=== PATIENT | male | born 1980 | race Caucasian/White ===

== ENCOUNTER → 2022-01-22 | Outpatient (CLI) | payer OTHER ==
[~2022-01-22] MED LIST: ASPIRIN 325MG325 MG PO; ASPIRIN CHEWABL81 MG PO; BENTYL 20MG TAB20 MG PO; BP MED; BUSPAR 10MG10 MG PO; COLCHICINE 0.60.6 MG PO; DEPRESSION MED; IBUPROFEN600 MG PO; MEDROL4 MG PO; NORCO 5-325 TA1 EACH PO; PROCARDIA XL 3030 MG PO; ROBAXIN 750 MG750 MG PO; SINEQUAN CAP 5050 MG PO; TYLENOL 500 MG500 MG PO; ZOFRAN ODT 4 MG4 MG SL
== END ==
LOC: EMI 01-17 11:00
DX: G00.9 Bacterial meningitis, unspecified (principal); G44.89 Other headache syndrome; G43.909 Migraine, unspecified, not intractable, without status migrainosus; R25.1 Tremor, unspecified; Z86.69 Personal history of other diseases of the nervous system and sense organs; G91.9 Hydrocephalus, unspecified
CPT/HCPCS: 70553; A9577

== ENCOUNTER → 2022-03-14 | Outpatient (CLI) | payer OTHER | LOC: EMI 11:15 | DX: M25.551 Pain in right hip (principal); R10.2 Pelvic and perineal pain; M87.9 Osteonecrosis, unspecified | CPT/HCPCS: 72195; 73721 ==

== ENCOUNTER → 2022-03-23 | Emergency (ER) | payer OTHER | END | disposition left against medical advice (07) | LOC: ER1 21:59 | DX: M25.512 Pain in left shoulder (principal); F17.210 Nicotine dependence, cigarettes, uncomplicated | CPT/HCPCS: 73000; 99281 ==

== ENCOUNTER 2022-07-08 12:58 | Emergency (ER) | payer OTHER ==
[2022-07-08] MEDS ORDERED: HYDROCODON-ACE1 EAC6 PO (14:48)
== END 2022-07-08 14:57 | disposition home or self-care (01) ==
LOC: ER1 12:58
DX: M25.551 Pain in right hip (principal); M25.552 Pain in left hip; G89.29 Other chronic pain; F11.20 Opioid dependence, uncomplicated; F17.200 Nicotine dependence, unspecified, uncomplicated; Z87.39 Personal history of other diseases of the musculoskeletal system and connective tissue; Z96.642 Presence of left artificial hip joint
CPT/HCPCS: 99283